=== PATIENT | female | born 1970 | race Caucasian/White ===

== ENCOUNTER → 2018-01-25 | Outpatient (CLI) | payer MEDICAID ==
[~2018-01-25] MED LIST: GADOBUTROL 7.5 MMOL/7.5 ML PFS ONE
== END | disposition home or self-care (01) ==
LOC: CFH 12:54
PROVIDERS: ATTEND Registered Nurse
DX: M48.07 Spinal stenosis, lumbosacral region (principal); M50.123 Cervical disc disorder at C6-C7 level with radiculopathy; M51.34 Other intervertebral disc degeneration, thoracic region; M25.78 Osteophyte, vertebrae; Z98.890 Other specified postprocedural states
CPT/HCPCS: 72050; 72072; 72110; 72128; 72131; 72141; 72157; 72158; A9585